=== PATIENT | male | born 1995 | race Caucasian/White ===

== ENCOUNTER 2019-03-17 21:23 | Emergency (ER) | payer OTHER ==
[~2019-03-17] VITALS: Ht 188 cm; Wt 89.8 kg
[2019-03-17] MEDS ORDERED: TETANUS,DIPTH,PERTUSS P/F (BOOSTRIX) 0.5 ML VIAL IM ONE (21:45)
[2019-03-17] MEDS ORDERED: fentaNYL INJECTION 100 MCG/2 ML AMP IVP ONE (21:45)
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
[2019-03-17] MEDS ORDERED: KETOROLAC 30 MG/ML VIAL IVP ONE (22:45)
[2019-03-17 23:40] VITALS: BP 143/84
--- NOTE | 2019-03-18 05:32 | Diagnostic Imaging Report ---
EXAMINATION: Right elbow INDICATION: Injury Three views were obtained. There are no prior studies available for comparison. There is no fracture, dislocation or acute bony abnormality evident. The elbow joint is well-maintained. The posterior fat-pad is not elevated. The soft tissues are unremarkable. IMPRESSION: There is no evidence for an acute bony abnormality. Dictated by: Dictated on workstation # [id number]
--- NOTE | 2019-03-18 05:34 | Diagnostic Imaging Report ---
EXAMINATION: Right shoulder at 9:34 PM INDICATION: Injury, shoulder pain Three views were obtained. There are no prior studies available for comparison. There is no fracture, dislocation or acute bony abnormality evident. The glenohumeral and acromioclavicular joints are well-maintained. The soft tissues are unremarkable. IMPRESSION: There is no evidence for an acute bony abnormality. Dictated by: Dictated on workstation # [id number]
--- NOTE | 2019-03-18 05:38 | Diagnostic Imaging Report ---
EXAMINATION: Right hand at 9:40 PM INDICATION: Injury Three views were obtained. There are no prior studies available for comparison. There is no fracture, dislocation or acute bony abnormality evident. The radiocarpal joint is well maintained. The soft tissues are unremarkable. IMPRESSION: There is no evidence for an acute bony abnormality. Dictated by: Dictated on workstation # [id number]
--- NOTE | 2019-03-18 05:40 | Diagnostic Imaging Report ---
EXAMINATION: Right forearm at 9:37 PM INDICATION: Injury, arm pain AP and lateral views were obtained. There are no prior studies available for comparison. There is no fracture, dislocation or acute bony abnormality evident. The wrist and elbow joints are fairly well-maintained. The soft tissues are unremarkable. IMPRESSION: There is no evidence for an acute bony abnormality. Dictated by: Dictated on workstation # [id number]
--- NOTE | 2019-03-18 05:46 | Diagnostic Imaging Report ---
EXAMINATION: Left tibia and fibula at 9:51 PM INDICATION: Injury AP and lateral views are obtained. There are no prior studies available for comparison. There is no fracture, dislocation or acute bony abnormality evident. There is orthopedic fixation staple in the proximal tibia and an orthopedic fixation clip in the distal femur. These findings are most likely related to a prior ACL repair. The knee and ankle joints are fairly well-maintained. There is a very small area of diminished density in the subarticular region of the lateral most aspect of the talar dome. This finding could be related to a small focus of osteochondritis dissecans. If further study is desired, then MRI would be recommended. There is also a 1 CM rounded lucency in the lateral aspect of the proximal tibia. This may represent a small bone cyst. IMPRESSION: 1. There is no evidence for an acute bony abnormality. 2. There are postsurgical changes consistent with prior ACR repair. 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 Recommendations as above. Dictated by: Dictated on workstation # [id number]
== END 2019-03-17 23:40 | disposition home or self-care (01) ==
LOC: ER FS 21:25
DX: S40.011A Contusion of right shoulder, initial encounter (principal); S60.221A Contusion of right hand, initial encounter; S50.01XA Contusion of right elbow, initial encounter; S40.212A Abrasion of left shoulder, initial encounter; R40.2142 Coma scale, eyes open, spontaneous, at arrival to emergency department; R40.2252 Coma scale, best verbal response, oriented, at arrival to emergency department; R40.2362 Coma scale, best motor response, obeys commands, at arrival to emergency department; V86.05XA Driver of 3- or 4- wheeled all-terrain vehicle (ATV) injured in traffic accident, initial encounter
CPT/HCPCS: 73030; 73080; 73090; 73130; 73590; 90471; 90715; 96374; 96375